=== PATIENT | male | born 1995 | race Caucasian/White ===

== ENCOUNTER 2018-04-04 15:09 | Emergency (ER) | payer OTHER ==
[~2018-04-04] VITALS: Ht 190.5 cm; Wt 95.0 kg
[2018-04-04 15:18] VITALS: BP 150/63
[2018-04-04] MEDS ORDERED: HYDROcodone/acetaminophen 10/325mg tab PO ONE (16:00)
[2018-04-04] MEDS ORDERED: ondansetron 4mg rapidly disintigrating tab PO ONE (16:00)
[2018-04-04] MEDS ORDERED: HYDR-4353 PO (16:30)
[2018-04-04] MEDS ORDERED: CEPH-572 PO (16:30)
== END 2018-04-04 17:22 | disposition home or self-care (01) ==
LOC: ER 15:09 → EDBD 15:09 → ER 17:22
DX: S52.532A Colles' fracture of left radius, initial encounter for closed fracture (principal); S52.612A Displaced fracture of left ulna styloid process, initial encounter for closed fracture; Z91.030 Bee allergy status; Z98.890 Other specified postprocedural states; W19.XXXA Unspecified fall, initial encounter; Y93.64 Activity, baseball; Y92.89 Other specified places as the place of occurrence of the external cause; Y99.9 Unspecified external cause status
CPT/HCPCS: 29125; 73110; 99284